=== PATIENT | male | born 1995 | race African-American/Black ===

== ENCOUNTER 2019-05-04 09:45 | Emergency (ER) | payer OTHER ==
[~2019-05-04] VITALS: Ht 170.2 cm; Wt 77.1 kg
[2019-05-04 10:08] VITALS: BP_SYST 122
--- NOTE | 2019-05-04 10:14 | NUR ---
Patient to ER bed 4 to gown for evaluation. Side rails up. Report given to Kenan SNEED.
--- NOTE | 2019-05-04 10:16 | NUR ---
JUAN MIGUEL Silva at bedside examining patient.
--- NOTE | 2019-05-04 10:17 | NUR ---
Pt sent from Rehab facility to confirm no ETOH consumption occurred.
--- NOTE | 2019-05-04 10:27 | NUR ---
Blood drawn for blood alcohol.
--- NOTE | 2019-05-04 10:53 | NUR ---
Patient given written and verbal discharge instructions and verbalizes understanding. ER MD discussed with patient the results and treatment provided. Patient in stable condition. ID arm band removed. No Rx given. Patient educated on pain management and to follow up with PMD. Pain Scale 0. Opportunity for questions provided and answered. Medication side effect fact sheet provided.
[2019-05-04 10:54] VITALS: BP_SYST 122
== END 2019-05-04 10:53 | disposition home or self-care (01) ==
LOC: SED 09:45
DX: Z02.89 Encounter for other administrative examinations (principal)
CPT/HCPCS: 36415; 99283; G0482